=== PATIENT | female | born 1990 | race Caucasian/White ===

== ENCOUNTER 2020-04-23 21:27 | Outpatient (RCR) | payer BC, MEDICAID, SELFPAY ==
[2020-04-23 22:19] VITALS: BP 117/68; PULSE 96
== END 2020-05-17 07:53 | disposition home or self-care (01) ==
LOC: ANHOBOP 21:27
PROVIDERS: Visit Provider Obstetrics & Gynecology
DX: O36.8130 Decreased fetal movements, third trimester, not applicable or unspecified (principal); Z3A.36 36 weeks gestation of pregnancy
CPT/HCPCS: 59025

== ENCOUNTER 2020-05-13 16:31 | Inpatient (IN) | payer BC, MEDICAID, SELFPAY ==
[2020-05-13] VITALS (8 sets, daily range): BP systolic 87–117; BP diastolic 49–68; PULSE 71–94; TEMP 36.8; BMI 50.7
--- NOTE | 2020-05-13 17:31 | LDADM ---
This patient, Nataliia Ca, was admitted to Labor/Delivery/Recovery 106 on 05/13/20 at 16:31. Plans for labor, pain management and were discussed with patient. Patient/family oriented to hospital policies and general routines including ID bracelet, bed and alarms, visiting hours, pain management, procedures, bathroom and other care routines, personal items, smoking policy, room service/diet and guest tray routines, infant security routines, and visiting hours. Patient/Family are encouraged to report perceived risks to care and to ask questions if they do not understand what they are told or what they should do. See OBIX for further documentation.
[2020-05-13 17:33] LABS: Basophils Percent Auto 0.4 % (0.2-1.2); Eosinophils Absolute Auto 0.1 K/mm3 (0-0.3); Eosinophils Percent Auto 0.9 % (0-4.4); Hematocrit 31.8 % (37.0-47.0); Immature Granulocyte Absolute 0.05 K/mm3 (0.00-0.031); Immature Granulocyte Percent A 0.5 % (0-0.5); Lymphocytes Absolute Auto 2.29 K/mm3 (0.9-3.2); Lymphocytes Percent Auto 23.6 % (18.3-44.2); Mean Corpuscular HGB Conc 31.4 g/dl (32-36); Mean Corpuscular Hemoglobin 25.3 pg (26-34); Mean Corpuscular Volume 80.5 fl (80-100); Mean Platelet Volume 10.5 fl (7.4-10.4); Monocytes Absolute Auto 0.5 K/mm3 (0.1-0.6); Monocytes Percent Auto 5.4 % (2.6-8.5); Neutrophils Absolute Auto 6.7 K/mm3 (1.3-6.7); Neutrophils Percent Auto 69.2 % (45.5-73.1); Platelet Count Result 312 k/mm3 (150-375); Red Blood Count 3.95 M/mm3 (4.2-5.4); Red Cell Distribution Width 15.2 % (11.5-14.5); White Blood Count 9.7 K/mm3 (4.5-10.0)
[2020-05-13] MEDS: DINOPROSTONE 10 MG VAG INSERT VAGINAL (17:41)
[2020-05-13 18:26] LABS: HIV 1/2 Ab P24 Ag Result Negative (Negative)
[2020-05-14] VITALS (89 sets, daily range): BP systolic 79–131; BP diastolic 29–74; PULSE 64–121; RESP 16–20; TEMP 36.4–37.3; O2SAT 98–100
[2020-05-14] MEDS: OXYTOCIN 30 UNITS/NS 500 ML 30 UNITS/500 ML BAG IV CONT (05:53)
[2020-05-14] MEDS: LACTATED RINGERS 1,000 ML 125 ML IV CONT ×2 (05:54→08:56)
--- NOTE | 2020-05-14 07:12 | WPDANESEPP ---
Anes - Eval Pre Procedure Procedure: labor epidural Date/Time: 05/14/20 07:12 Preop Diagnosis: labor pain Pre Op Diagnosis: induction of labor Patient Data Age: 30 Gender: F Height: 5 ft 4 in Weight: 134 kg Last Vital Signs Temp 36.7 C 05/14/20 06:00 Pulse 83 05/14/20 07:01 BP 119/66 05/14/20 07:01 Allergies Allergy/AdvReac Type Severity Reaction Status Date / Time hydrocodone [From Vicodin] Allergy Hives Verified 04/20/20 12:43 raspberry Allergy Hives Verified 04/20/20 12:43 Home Medications Medication Instructions Recorded Confirmed Type famotidine [Pepcid] 20 mg PO BID 04/20/20 04/23/20 History prenat.vits,iain,auy-ubsf-hnkxy 1 tablet PO DAILY 04/20/20 04/23/20 History [ #2] Laboratory Tests 05/13/20 05/13/20 05/13/20 17:23 17:23 17:23 WBC 9.7 K/mm3 K/mm3 (4.5-10.0) RBC 3.95 M/mm3 L M/mm3 (4.2-5.4) Hgb 10.0 g/dL L g/dL (12.0-15.0) Hct 31.8 % L % (37.0-47.0) MCV 80.5 fl fl (80-100) MCH 25.3 pg L pg (26-34) MCHC 31.4 g/dl L g/dl (32-36) RDW 15.2 % H % (11.5-14.5) Plt Count 312 k/mm3 k/mm3 (150-375) MPV 10.5 fl H fl (7.4-10.4) Immature Gran % (Auto) 0.5 % % (0-0.5) Neut % (Auto) 69.2 % % (45.5-73.1) Lymph % (Auto) 23.6 % % (18.3-44.2) [place] % (Auto) 5.4 % % (2.6-8.5) Eos % (Auto) 0.9 % % (0-4.4) Baso % (Auto) 0.4 % % (0.2-1.2) Lymph # (Auto) 2.29 K/mm3 K/mm3 (0.9-3.2) [place] # (Auto) 0.5 K/mm3 K/mm3 (0.1-0.6) Eos # (Auto) 0.1 K/mm3 K/mm3 (0-0.3) Baso # (Auto) 0.0 K/mm3 K/mm3 (0.0-0.1) Abs Immat Gran (auto) 0.05 K/mm3 H K/mm3 (0.00-0.031) Absolute Neuts (auto) 6.7 K/mm3 K/mm3 (1.3-6.7) Absolute Nucleated RBC 0.0 K/mm3 K/mm3 (0.0-0.012) Nucleated RBC % 0.0 % % (0.0-0.2) RPR Pending HIV 1&2 Ab/P24 Ag 4thGn Blood Type O Positive Antibody Screen Negative 05/13/20 17:23 WBC RBC Hgb Hct MCV MCH MCHC RDW Plt Count MPV Immature Gran % (Auto) Neut % (Auto) Lymph % (Auto) [place] % (Auto) Eos % (Auto) Baso % (Auto) Lymph # (Auto) [place] # (Auto) Eos # (Auto) Baso # (Auto) Abs Immat Gran (auto) Absolute Neuts (auto) Absolute Nucleated RBC Nucleated RBC % RPR HIV 1&2 Ab/P24 Ag 4thGn Negative (Negative) Blood Type Antibody Screen Patient hx anesthesia problems: none Family hx anesthesia problems: none [facility] Family History Family History (Updated 04/20/20 @ 12:55 by Norm Hernadez RN) Mother Chronic obstructive pulmonary disease Hypertension Cerebrovascular accident Grandparent Heart disease Hypertension Grandparent Breast cancer Son Chiari malformation type I Nystagmus Social History Social History Smoking status: Never smoker Substance use: never Spiritual care concerns: No Exam Day of Procedure 05/14/20 07:12
[2020-05-14] MEDS: fentaNYL CITRATE INJ (*CRX) 100 MCG/2 ML VIAL 50 MCG IV PUSH (07:55)
[2020-05-14 09:27] LABS: Rapid Plasma Reagin Non-Reactive (NonReactive)
--- NOTE | 2020-05-14 11:53 | WPDHPUPDATE1 ---
History and Physical Update Update Date/Time: 05/14/20 11:53 History and Physical has been reviewed, including an updated exam of the patient. There are NO changes in the patient's condition. Risks, benefits, and alternatives have been discussed and questions answered. Patient agrees to proceed with procedure.
--- NOTE | 2020-05-14 11:53 | WPDOBADMIT ---
Obstetrics - Admit Note Admission Note: record reviewed. No pertinent additions to the history and/or any subsequent changes in the physical findings that are not consistent with the expected course of the were found. Additions to the history and/or subsequent changes in the physical findings follow. None.
--- NOTE | 2020-05-14 11:53 | PM.OBPRVD ---
OB - Delivery Note Procedure Route of delivery: Episiotomy description: None Laceration Description: None Specimen: Yes Quantitative Blood Loss: 100 Anesthesia type: Epidural Disposition: floor Narrative: Patient prepped and draped in the usual manner for this procedure. Maternal expulsive efforts delivered vertex with nuchal cord reduced at the time. The rest of baby was delivered cord was clamped and cut and the placenta delivered spontaneously. Cervix vagina vulva were inspected with no lacerations or tears. This point seizure was considered terminated. Baby Weeks of gestation at delivery: 39 Infant gender: Male Weight (pounds): 6 Weight (ounces): 2 score one minute: 8 score five minutes: 9
[2020-05-14] MEDS: OXYTOCIN 30 UNITS/NS 500 ML 30 UNITS/500 ML BAG 125 UNITS IV CONT (12:11)
--- NOTE | 2020-05-14 14:25 | PC.NURSE ---
Patient transferred to post room #283 per wheelchair from labor and delivery. Support person present. Oriented to unit, room, information board, rooming in, admission packet and security measures. Patient verbalizes understanding.
[2020-05-14] MEDS: IBUPROFEN 600 MG TABLET PO ×2 (15:34→23:35)
[2020-05-14] MEDS: FAMOTIDINE 20 MG TABLET PO (20:00)
--- NOTE | 2020-05-15 07:37 | PM.OBDSVD ---
DS: Admitting Diagnosis Admitting Diagnosis Admitting Diagnosis: induction of labor OB - DS: Summary OB Procedures : None OB Procedures Intrapartum: Spontaneous Vag Delivery OB Procedures: : None Time Spent with Patient Time attestation: Total time spent providing and/or coordinating discharge services: DS: Data Data Completed and Pending Pending studies at discharge: Pending at discharge 05/14/20 12:28 Surgical [PTH] Routine Labs on day of discharge: Labs from last 24 hours 05/13/20 17:23 RPR Non-reactive Discharge Plan Discharge Discharging Clinician: Tim Delarosa Patient Disposition: Home, Self-Care Activity: as tolerated Diet: as tolerated Patient Instructions: Antibiotic Form Stand Alone Forms: General Discharge Information Follow-up/Referrals: Tim Delarosa MD [Physician] - 3 Weeks Discharge Medications: New ibuprofen 600 mg Tablet 600 mg PO Q8H PRN (Reason: Cramping) Qty: 30 RF: 0 Continued famotidine [Pepcid] 20 mg Tablet 20 mg PO BID RF: 0 #2 Tablet 1 tablet PO DAILY RF: 0 Date of admission: 05/13/20 16:31 Primary Care Provider: PHYSICIAN NOT ON STAFF,NONSTAFF Admitting Provider: Tim Delarosa Attending physician on admission: Tim Delarosa
[2020-05-15 09:20] VITALS: BP 115/60; PULSE 78; RESP 18; TEMP 36; O2SAT 100
[2020-05-15] MEDS: POLYSACCHARIDE IRON COMPLEX 150 MG CAPSULE PO (09:25)
[2020-05-15] MEDS: MULTIVIT/MIN/PREN/FOL AC/IRON TABLET 1 TAB PO (09:25)
[2020-05-15] MEDS: FAMOTIDINE 20 MG TABLET PO (09:26)
[2020-05-15] MEDS: DOCUSATE SODIUM 100 MG CAPSULE PO (09:26)
[2020-05-15] MEDS: IBUPROFEN 600 MG TABLET PO (09:26)
[2020-05-15] MEDS: TETANUS,DIPHTHERIA,AC PERTUSSIS ADULT (0.5 ML) BOOSTRIX IM (09:27)
[2020-05-15 09:39] LABS: Hematocrit 27.1 % (37.0-47.0); Hemoglobin 8.5 g/dL (12.0-15.0)
--- NOTE | 2020-05-15 13:17 | WPDANLDPN2 ---
Anes-Prog Note L&D Date/Time: 05/15/20 13:17 Comfortable throughout: labor and delivery Neuraxial method: epidural Epidural/Spinal procedure site: clean & non-tender Neuro status: Neuro function grossly intact. Cardiovascular status: normal Respiratory status: normal Airway patency: baseline Mental status: baseline Post-Op hydration status: normal Vital Signs: Last Vital Signs Temp 36.0 C L 05/15/20 09:20 Pulse 78 05/15/20 09:20 Resp 18 05/15/20 09:20 BP 115/60 05/15/20 09:20 Pulse Ox 100 05/15/20 09:20 Pain score (VAS): 0 I/O: Intake & Output 05/14/20 05/15/20 05/15/20 23:59 07:59 15:59 Intake Total 500 Balance 500 Post-procedural complaints: none Patient feedback: Patient satisfied with anesthetic care.
--- NOTE | 2020-05-15 18:48 | PC.NURSE ---
1530 Discharge papers for mother and baby reviewed with parents; mother signed in understanding
[2020-05-17 10:59] VITALS: BP 114/66; PULSE 76; RESP 20; TEMP 37.1; O2SAT 100
== END 2020-05-15 15:45 | disposition home or self-care (01) | DRG 807 ==
LOC: ANHLDR 05-14 13:58 → ANHOB2 05-14 14:47
PROVIDERS: Admitting Provider Obstetrics & Gynecology; Visit Provider Obstetrics & Gynecology
DX: O69.81X0 Labor and delivery complicated by cord around neck, without compression, not applicable or unspecified (principal); Z37.0 Single live birth; Z3A.39 39 weeks gestation of pregnancy
CPT/HCPCS: 36415; 85014; 85018; 85025; 86592; 86703; 86850; 86900; 86901; 88307; 90715; A9270; G0432; J2590; J2795; J3010; J7120